=== PATIENT | female | born 2000 | race African-American/Black ===

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

== ENCOUNTER 2018-12-14 06:04 | Emergency (ER) | payer MEDICAID ==
[~2018-12-14] VITALS: Ht 172.7 cm; Wt 71.0 kg
[2018-12-14 06:16] VITALS: BP 114/78
== END 2018-12-14 09:06 | disposition left against medical advice (07) ==
LOC: ER 06:04
DX: Z53.21 Procedure and treatment not carried out due to patient leaving prior to being seen by health care provider (principal)